=== PATIENT | female | born 1995 | race Caucasian/White ===

== ENCOUNTER 2018-09-23 15:17 | Emergency (ER) | payer MEDICAID, OTHER ==
[~2018-09-23] VITALS: Ht 165.1 cm; Wt 86.4 kg
[~2018-09-23 15:17] MED LIST: PREN1TAB52 PO
[2018-09-23] MEDS ORDERED: IBUP-2354 PO (15:31)
[2018-09-23] MEDS ORDERED: IBUPROFEN 800 MG TABLET PO ONE (16:45)
[2018-09-23 17:55] VITALS: BP 129/79
== END 2018-09-23 18:00 | disposition home or self-care (01) ==
LOC: EMS 15:17
DX: Z48.00 Encounter for change or removal of nonsurgical wound dressing (principal)